=== PATIENT | female | born 1990 | race Caucasian/White ===

== ENCOUNTER 2018-06-16 17:06 | Outpatient (REF) | payer MEDICAID, SELFPAY ==
[2018-06-16 20:38] LABS: HCT 43.4 % (36.0-46.0); Mean Corp. HGB Concentration 32.3 g/dL (32.0-36.0); Mean Corpuscular Hemoglobin 31.5 pg (27.0-33.0); Mean Corpuscular Volume 97.7 fL (80-95); Mean Platelet Volume 9.5 fL (8.0-11.0); Platelet Count 316 x1000/uL (130-400); RBC 4.44 m/cumm (4.00-5.20); RBC Distribution Width 14.1 % (11.7-14.6); White Blood Cell Count 18.43 k/cumm (4.4-10.8)
[2018-06-16 20:54] LABS: TSH (W/Ref FT4) 0.57 uIU/mL (0.358-3.74)
[2018-06-16 21:04] LABS: Hemoglobin A1C 5.8 % (4.5-6.2)
== END 2018-06-16 17:26 ==
LOC: NCHCN 17:06
PROVIDERS: PCP Family Medicine; Visit Provider Family Medicine
DX: N93.9 Abnormal uterine and vaginal bleeding, unspecified (principal)
CPT/HCPCS: 85027; 83036; 84443

== ENCOUNTER 2018-06-30 08:07 | Outpatient (REF) | payer MEDICAID, SELFPAY ==
[2018-07-03 10:41] LABS: Campylobacter PCR SEE COMMENTS; Salmonella PCR SEE COMMENTS; Shiga Toxin PCR SEE COMMENTS; Shigella/Enteroinvasive Ecoli SEE COMMENTS
== END 2018-06-30 08:27 ==
LOC: NCHCN 08:07
PROVIDERS: PCP Family Medicine; Visit Provider Registered Nurse
DX: K52.9 Noninfective gastroenteritis and colitis, unspecified (principal)
CPT/HCPCS: 87505; 83630; 87324

== ENCOUNTER 2018-08-23 16:44 | Outpatient (REF) | payer MEDICAID, SELFPAY ==
--- NOTE | 2018-08-23 15:45 | PAPFT_PTH ---
PATIENT: Giulia Marinelli LOC: [facility] U#:[id number] AGE/SX: 28/F ROOM: RE08/23/[address]: Devan Pastor : 1990 BED: DIS: 08/23/2018 SPEC #: [id number] RECD: 08/24/18 12:58 STATUS: CALDERON REJuan C #: [id number] AGGIE: 08/23/18 15:[address]: Devan Pastor DEPT: [facility] Cytology RECD BY: Romy Flores ENTERED: 08/24/18 12:59 SP TYPE: PAPFT OTHR DR: Elmer Kaur Tissues: 1 - CX/ENDOCX FOR PAP SMEARS Procedures: PAP THIN PREP/UVM Screening Comments: [id number]
== END 2018-08-23 17:04 ==
LOC: NCHCN 16:44
PROVIDERS: PCP Family Medicine; Visit Provider Family Medicine
DX: Z12.4 Encounter for screening for malignant neoplasm of cervix (principal); Z00.00 Encounter for general adult medical examination without abnormal findings
CPT/HCPCS: 88142

== ENCOUNTER 2018-09-26 13:55 | Outpatient (REF) | payer MEDICAID, SELFPAY ==
[2018-09-26 21:35] LABS: ALT 24 U/L (12-78); AST 12 U/L (15-37); Albumin 3.1 g/dL (3.4-5.0); Alkaline Phosphatase 65 U/L (46-116); Anion Gap 8.2 mmol/L (3-11); BUN 20 mg/dL (7-18); Bilirubin, Total 0.2 mg/dL (0.2-1.0); CO2 27.8 mmol/L (21.0-32.0); Calcium 8.9 mg/dL (8.5-10.1); Chloride 104 mmol/L (98-107); Glucose 97 mg/dL (70-100); Potassium 4.6 mmol/L (3.5-5.1); Sodium 140 mmol/L (136-145); Total Protein 6.4 g/dL (6.4-8.2)
[2018-09-26 21:40] LABS: VALPROIC ACID 55.7 ug/mL (50-100)
[2018-09-26 22:06] LABS: HCT 40.3 % (36.0-46.0); HGB 12.8 g/dL (12.0-15.5); Mean Corp. HGB Concentration 31.8 g/dL (32.0-36.0); Mean Corpuscular Hemoglobin 30.9 pg (27.0-33.0); Mean Corpuscular Volume 97.3 fL (80-95); Mean Platelet Volume 10.2 fL (8.0-11.0); Platelet Count 331 x1000/uL (130-400); RBC 4.14 m/cumm (4.00-5.20); RBC Distribution Width 12.9 % (11.7-14.6); White Blood Cell Count 8.19 k/cumm (4.4-10.8)
[2018-09-26 22:45] LABS: Hemoglobin A1C 5.4 % (4.5-6.2)
== END 2018-09-26 14:15 ==
LOC: NCHCN 13:55
PROVIDERS: PCP Family Medicine; Visit Provider Family Medicine
DX: F31.9 Bipolar disorder, unspecified (principal); Z51.81 Encounter for therapeutic drug level monitoring; Z79.899 Other long term (current) drug therapy; R73.03 Prediabetes
CPT/HCPCS: 80053; 85027; 80164; 83036

== ENCOUNTER 2020-03-02 23:26 | Emergency (ER) | payer MEDICAID, SELFPAY ==
[2020-03-02 23:29] VITALS: BP 134/74; PULSE 98; RESP 18; TEMP 36.8; O2SAT 98
[2020-03-02] MEDS: Lidocaine/Epinephri/Tetracaine Topical Gel 3 ML (23:42)
--- NOTE | 2020-03-02 23:51 | ED.GENADUL_ITS ---
Discharge Plan Disposition Patient Disposition: HOME Condition: Good Discharge Details Clinical Impression: Laceration of upper arm without complication Primary Care Provider: Elmer Kaur ED Provider: Juan Giordano Discharge Instructions Instructions: Laceration (ED) Additional Instructions: Please leave the dressing on for 24 hours, then you may remove and begin cleaning the wound at least twice a day with soap and water. Continue to apply antibiotic ointment. Do not directly soak the area. Watch for any signs of infection and return if any increasing redness, swelling, pain, drainage. Please return in the next 7 to 10 days to have the sutures removed. If you notice any worsening of your symptoms, or any new symptoms such as vomiting, diarrhea, fever, chills, shortness of breath, chest pain, numbness, weakness, or fainting , please return immediately to the emergency department for reevaluation. Please follow up with your primary care provider as soon as possible for reassessment and reevaluation. As always, it was a pleasure part icipating in your medical care today. Referrals: Elmer Kaur [Primary Care Provider] - Medical Decision Making 29-year-old female presents today for evaluation of laceration to her left nondominant arm. Patient states that she was cleaning out a vase tonight when the glass broke and cut her arm. Aside for pain at the laceration site she denies any other complaints. She states that it was not self-inflicted. She denies any assault, and she states that she feels safe at home. Patient also states that tetanus was updated recently. She denies any new numbness tingling or weakness. No other complaints at this time. Exam demonstrates a 6 inch linear laceration to the left forearm, notably superficial and not deep. No evidence of retained foreign body or other abnormality. No indication for further imaging. The area will be sutured. Tetanus is up-to-date per patient. LAT was applied, a single simple interrupted suture was placed as well as a running interlocking suture with a 14 loops. Patient tolerated this well. Patient will be discharged home. Discussed red flags which should return the importance for suture removals. I have extensively reviewed the treatment plan and discharge instructions with the patient. I have addressed all patient concerns at this time. The patient was made aware of what symptoms to monitor for that would warrant a return to the emergency department. Discussed the plan with the patient, they demonstrate verbal understanding and agreement with our assessment and plan at this time. HPI General Date/Time Provider Initiated Documentation: 03/02/20 23:28 . HPI Narrative: 29-year-old female presents today for evaluation of laceration to her left nondominant arm. Patient states that she was cleaning out a vase tonight when the glass broke and cut her arm. Aside for pain at the laceration site she denies any other complaints. She states that it was not self-inflicted. She denies any assault, and she states that she feels safe at home. Patient also states that tetanus was updated recently. She denies any new numbness tingling or weakness. No other complaints at this time. General Stated Complaint: Laceration ROE: 4 Review of Systems All systems reviewed & are unremarkable except as noted in HPI and below [facility] Social History Smoking/Tobacco Use Status: Current every day Tobacco Type: cigarettes Smoking risk assessment performed?: Yes Alcohol Intake: never Drug use: Occasionally Substance use type: marijuana Do you feel safe at home: Yes Do you feel safe in your relationship?: Yes Exam Narrative Exam Narrative: 1.Const: Well-nourished, Well-developed, appearing stated age 2.Eyes: PERRL, no conjunctival injection, and symmetrical lids. 3.ENT: Atraumatic external nose and ears. Moist MM. Neck: Symmetric, trachea midline, No thyromegaly. 4.CVS: +S1/S2, No murmurs or gallops. Peripheral pulses 2+ and equal in all extremities. Brisk capillary refill in all extremities. 5.RESP: Unlabored respiratory effort. Clear to auscultation bilaterally. No wheezes rales or rhonchi 6.GI: Soft, Nontender/Nondistended, No hepatosplenomegaly. No guarding or rebound. 7.MSK: Normocephalic/Atraumatic, Extremities w/o deformity or ttp No cyanosis or clubbing, Normal movement of all extremities 8.Skin: Left arm demonstrates a linear 6 inch superficial laceration only for the superficial skin, and not deep into the subcutaneous tissues. There is no bleeding, oozing, or other abnormalities. There is a distal laceration that is old and well-healing with sutures in place but is otherwise clean dry and intact. No other evidence of trauma. 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 Sensation grossly intact, no focal neurologic deficits. 10.Psych: (AAO) x3. Appropriate mood and affect Course Vital Signs Vital signs: Vital Signs Temperature 36.8 C 03/02/20 23:29 Pulse 98 H 03/02/20 23:29 Respiratory Rate 18 03/02/20 23:29 Blood Pressure 134/74 03/02/20 23:29 Pulse Oximetry 98 03/02/20 23:29 Temperature 36.8 C 03/02/20 23:29 Temperature Source Oral 03/02/20 23:29 Pulse 98 H 03/02/20 23:29 Respiratory Rate 18 03/02/20 23:29 Respiratory Effort Non-Labored 03/02/20 23:33 Blood Pressure 134/74 03/02/20 23:29 Blood Pressure Position Supine 03/02/20 23:29 Pulse Oximetry 98 03/02/20 23:29 Pain Level 6 03/02/20 23:34 Procedures Laceration Laceration 1: Site: upper extremity Side (If applicable): left Size (cm): 9 Description: linear Depth: simple, single layer Local Anesthetic: other anesthetic (LET) Pre-repair: wound explored, irrigated extensively and deep structures intact Skin layer closed with: nylon Size (cm): 5-0 Number of sutures: 2 Technique: running (14 loops and a single simple interrupted suture)
== END 2020-03-03 00:31 | disposition home or self-care (01) ==
PROVIDERS: Emergency Provider Student in an Organized Health Care Education/Training Program; PCP Family Medicine
DX: S41.112A Laceration without foreign body of left upper arm, initial encounter (principal); W25.XXXA Contact with sharp glass, initial encounter

== ENCOUNTER 2021-01-06 17:30 | Outpatient (REF) | payer MEDICAID, SELFPAY ==
[2021-01-06 20:56] LABS: HCT 42.3 % (36.0-46.0); MCH 31.3 pg (27.0-33.0); MCHC 33.1 % (32.0-36.0); MCV 94.4 fL (80-95); MPV 9.6 fL (8.0-11.0); Platelet Count 382 10^3/uL (130-400); RBC 4.48 10^6/uL (3.93-5.22); RDW 12.9 % (11.7-14.6); RDW-SD 44.8 fL
[2021-01-06 21:00] LABS: ALT 32 U/L (14-59); AST 16 U/L (15-37); Alkaline Phosphatase 87 U/L (46-116); Anion Gap 7.6 mmol/L (3-11); BUN 13 mg/dL (7-18); Bilirubin, Total 0.2 mg/dL (0.2-1.0); CO2 28.4 mmol/L (21.0-32.0); CREATININE 0.8 mg/dL (0.55-1.02); Chloride 106 mmol/L (98-107); Glucose 74 mg/dL (74-106); Potassium 4.3 mmol/L (3.5-5.1); Sodium 142 mmol/L (136-145); Total Protein 6.6 g/dL (6.4-8.2)
[2021-01-06 21:21] LABS: COMMENT (LAB VIEW ONLY) 163.89 mg/dL; Microalb ug/mg Crea 126.3 ug/mg Cr
== END 2021-01-06 17:31 | disposition home or self-care (01) ==
LOC: NCHCN 17:30
PROVIDERS: PCP Family Medicine; Visit Provider Nurse Practitioner Family
DX: I10 Essential (primary) hypertension (principal)
CPT/HCPCS: 80053; 85027; 82043; 82570

== ENCOUNTER 2021-05-21 15:55 | Outpatient (REF) | payer MEDICAID, SELFPAY ==
[2021-05-21 22:41] LABS: Vitamin D 25 Total 19.8 ng/mL (30-100)
== END 2021-05-21 15:56 | disposition home or self-care (01) ==
LOC: NCHCN 15:55
PROVIDERS: PCP Family Medicine; Visit Provider Nurse Practitioner Psychiatric/Mental Health
DX: F41.9 Anxiety disorder, unspecified (principal); F31.9 Bipolar disorder, unspecified; F29 Unspecified psychosis not due to a substance or known physiological condition; F43.10 Post-traumatic stress disorder, unspecified
CPT/HCPCS: 82306

== ENCOUNTER 2021-07-23 15:31 | Outpatient (REF) | payer MEDICAID, SELFPAY ==
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
--- OUTSIDE RECORDS SUMMARY | 2021-07-23 15:44 | XMS_ITS | CCD ---
:1990 Author Care Team Providers Name Role Phone ESAU IYER Attending Physician Unavailable Vital Signs Unknown or Not Available. Allergies Allergy Code Allergy Type Reaction Status AMBIEN 789299 Drug allergy ANGER Active ZYPREXA 607702 Drug allergy WEIGHT GAIN Active LISINOPRIL {Clinical 0 Drug allergy ANGER Active monitoring unavailable} SHELLFISH 0 Food allergy Hives; Anaphylaxis Active POLLEN {Clinical 0 Allergy to Active monitoring substance unavailable} ASPIRIN 1191 Drug allergy NAUSEA; UPSET STOMACH Active Procedures Unknown or Not Available. History of Immunizations Unknown or Not Available. Problems Problem Code Start Date Resolved Date Status Syncope 379175062 Active Hypokalemia 65893263 Active Results Unknown or Not Available. Active Medications Medication Code Dose Units Frequency Route Modification Start Date/Time Potassium 6521381 1 TABLET DAILY ORAL 11/13/2019 Chloride 13:09 20MEQ Oral Tablet, Extended Release Prescription Detail TAKE 1 TABLET ORAL DAILY busPIRone 30MG 964472 30 MILLIGRAMS BEDTIME ORAL 2019 Oral Tablet 13:08 Prescription Detail TAKE 30 MILLIGRAMS ORAL BEDT GRIS Cetirizine 10MG 6262088 10 MILLIGRAMS DAILY ORAL 11/12 Oral Tablet 13:08 Prescription Detail TAKE 10 MILLIGRAMS ORAL EVANGELINA Y Desvenlafaxine 50MG 6374031 50 MILLIGRAMS DAILY ORAL 0 11/13/2019 Oral Tablet, 13:08 Extended Release Prescription Detail TAKE 50 MILLIGRAMS ORAL EVANGELINA Y Esomeprazole 325027 40 MILLIGRAMS DAILY ORAL 11/13/19 20 Magnesium 40MG 13:08 Oral Capsule, Delayed Release Prescription Detail TAKE 40 MILLIGRAMS ORAL EVANGELINA Y lamoTRIgine 384965 200 MILLIGRAMS BEDTIME ORAL 0 200MG Oral 13:08 Tablet Prescription Detail TAKE 200 MILLIGRAMS ORAL BED TIME LORazepam 0.5MG 2 TABLET BEDTIME ORAL 11/13/19 20 Oral Tablet 13:08 Prescription Detail TAKE 2 TABLET ORAL BEDTIME Montelukast 20010529 10 MILLIGRAMS DAILY ORAL 0 Sodium 10MG Oral 13:08 Tablet Prescription Detail TAKE 10 MILLIGRAMS ORAL EVANGELINA Y PROVENTIL HFA 0 2 PUFF TWICE A INHALATION 019 0.09MG/1ACTUATION INH DAY 20 :45 Prescription Detail 2 PUFF INHALATION TWICE A D AY SYMBICORT 160/4.5 0 1 PUFF TWICE A INHALATION 80MCT-4.5MCG/1 AC DAY 20:45 Prescription Detail 1 PUFF INHALATION TWICE A D AY Medications Administered During Visit Unknown or Not Available. Encounters Encounter Diagnosis Diagnosis Code Start Date Decreased movements, third trimester, not [id number] 10/26/2020 applicable or unspecified Social History Smoking Status Code Start Date End Date Current every day smoker [id number] 04/25/2003 Patient Decision Aids Unknown or Not Available. Discharge Instructions You were admitted to [facility] on 10/26/2020 14:49 with a principal diagnosis of Decreased movements, third trimester, not applicable or unspecified You were discharged from [facility] on 10/26/2020 15:40 Should you have any questions prior to d ischarge, please contact a member of your healthcare team. If you have left the spital and have any questions, please contact your primary care physician. Chief Complaint and Reason For Visit Chief Complaint Date of Onset DECREASED MOVEMENTS Function Status Unknown or Not Available. Plan of Care Unknown or Not Available. Referral/Transition of Care Unknown or Not Available.
--- OUTSIDE RECORDS SUMMARY | 2021-07-23 15:44 | XMS_ITS | CCD ---
:1990 Author Care Team Providers Name Role Phone JOE BOATENG, A Attending Physician Unavailable Vital Signs Unknown or Not Available. Allergies Allergy Code Allergy Type Reaction Status AMBIEN 397923 Drug allergy ANGER Active ZYPREXA 225198 Drug allergy WEIGHT GAIN Active LISINOPRIL {Clinical 0 Drug allergy ANGER Active monitoring unavailable} SHELLFISH 0 Food allergy Hives; Anaphylaxis Active POLLEN {Clinical 0 Allergy to Active monitoring substance unavailable} ASPIRIN 1191 Drug allergy NAUSEA; UPSET STOMACH Active Procedures Unknown or Not Available. History of Immunizations Unknown or Not Available. Problems Problem Code Start Date Resolved Date Status Syncope 735164589 Active Hypokalemia 65795485 Active Results GLUCOSE - 1 HOUR AFTER 50GM GLUCOLA - Co llect Date/Time: 10/09/2020 07:43 Test Name Code Test Result Test Units Test Ref Range GLUCOSE 1 HOUR 1504-0 137 mg/dL L=0 H= 135 HEMOGRAM & PLATELET W/O DIFF - Collect D ate/Time: 10/09/2020 07:43 Test Name Code Test Result Test Units Test Ref Range WBC 6690-2 10.92 th/cmm L=5.00 H=10.00 NRBC % 03180-4 0.0 % L=0.0 H=0. 0 NRBC abs count 49706-0 0.0 mil/cmm L=0.0 H= 0.0 RBC 789-8 4.30 mil/cmm L=3.90 H=5.40 HEMOGLOBIN 718-7 13.0 gm/dL L=12.0 H=16.0 HEMATOCRIT 4544-3 40 % L=37 H=47 MCV 787-2 94 fL L=82 H=92 MCH 785-6 30.2 pg L=27.0 H=31.0 MCHC 786-4 32.3 % L=32.0 H=36.0 RDW-SD 788-0 47.2 fL L=39.0 H=49.0 PLATELET COUNT 777-3 289 th/cmm L=150 H= 450 TYPE AND ANTIBODY SCREEN - Jaret ect Date/Time: 10/09/2020 07:43 Test Name Code Test Result Test Units Test Ref Range Blood Group 883-9 O N/A Rh (D) 84056-1 POSITIVE N/A Antibody Screen 1005-8 NEGATIVE N/A VARICELLA IGG ANTIBODY - Collect Date/Ti me: 10/09/2020 07:43 Test Name Code Test Result Test Units Test Ref Range Varicella IgG Antibody Negative N/A See N ote Active Medications Medication Code Dose Units Frequency Route Modification Start Date/Time Potassium 5144724 1 TABLET DAILY ORAL 11/13/2019 Chloride 13:09 20MEQ Oral Tablet, Extended Release Prescription Detail TAKE 1 TABLET ORAL DAILY busPIRone 30MG 050974 30 MILLIGRAMS BEDTIME ORAL 2019 Oral Tablet 13:08 Prescription Detail TAKE 30 MILLIGRAMS ORAL BEDT GRIS Cetirizine 10MG 3427814 10 MILLIGRAMS DAILY ORAL 11/12 Oral Tablet 13:08 Prescription Detail TAKE 10 MILLIGRAMS ORAL EVANGELINA Y Desvenlafaxine 50MG 0130423 50 MILLIGRAMS DAILY ORAL 0 11/13/2019 Oral Tablet, 13:08 Extended Release Prescription Detail TAKE 50 MILLIGRAMS ORAL EVANGELINA Y Esomeprazole 258156 40 MILLIGRAMS DAILY ORAL 11/13/19 20 Magnesium 40MG 13:08 Oral Capsule, Delayed Release Prescription Detail TAKE 40 MILLIGRAMS ORAL EVANGELINA Y lamoTRIgine 373992 200 MILLIGRAMS BEDTIME ORAL 0 200MG Oral 13:08 Tablet Prescription Detail TAKE 200 MILLIGRAMS ORAL BED TIME LORazepam 0.5MG 218211 2 TABLET BEDTIME ORAL 11/13/19 20 Oral Tablet 13:08 Prescription Detail TAKE 2 TABLET ORAL BEDTIME Montelukast 053390 10 MILLIGRAMS DAILY ORAL 0 Sodium 10MG [...] Encounters Encounter Diagnosis Diagnosis Code Start Date Obesity complicating , third trimester [id number] 10/09/2020 Social History Smoking Status Code Start Date End Date Current every day smoker 916153278 04/25/2003 Patient Decision Aids Unknown or Not Available. Discharge Instructions You were admitted to [facility] on 10/09/2020 07:02 with a principal diagnosis of Obesity complicating pregna ncy, third trimester You had the following tests done: GLUCOSE - 1 HOUR AFTER 50GM GLUCOLA HEMOGRAM & PLATELET W/O DIFF TYPE AND ANTIBODY SCREEN VARICELLA IGG ANTIBODY You were discharged from [facility] on 10/09/2020 07:02 Should you have any questions prior to d ischarge, please contact a member of your healthcare team. If you have left the ho spital and have any questions, please contact your primary care physician. Chief Complaint and Reason For Visit Unknown or Not Available. Function Status Unknown or Not Available. Plan of Care Unknown or Not Available. Referral/Transition of Care Unknown or Not Available.
--- OUTSIDE RECORDS SUMMARY | 2021-07-23 15:44 | XMS_ITS | CCD ---
:1990 Author Care Team Providers Name Role Phone STONE Attending Physician Unavailable Vital Signs Unknown or Not Available. Allergies Allergy Code Allergy Type Reaction Status AMBIEN 471612 Drug allergy ANGER Active ZYPREXA 810623 Drug allergy WEIGHT GAIN Active LISINOPRIL {Clinical 0 Drug allergy ANGER Active monitoring unavailable} SHELLFISH 0 Food allergy Hives; Anaphylaxis Active POLLEN {Clinical 0 Allergy to Active monitoring substance unavailable} ASPIRIN 1191 Drug allergy NAUSEA; UPSET STOMACH Active Procedures Unknown or Not Available. History of Immunizations Unknown or Not Available. Problems Problem Code Start Date Resolved Date Status Syncope 014634607 Active Hypokalemia 23029083 Active Results GLUCOSE TOLERANCE TEST THREE HOUR - Jaret ect Date/Time: 10/17/2020 07:32 Test Name Code Test Result Test Units Test Ref Range Fasting Glucose 3665-7 94 mg/dL L=80 H=116 1 hour Glucose 158 mg/dL L=80 H=200 2 hour Glucose 132 mg/dL L=80 H=150 3 hour Glucose 3665-7 61 mg/dL L=80 H=116 Active Medications Medication Code Dose Units Frequency Route Modification Start Date/Time Potassium 9210109 1 TABLET DAILY ORAL 11/13/2019 Chloride 13:09 20MEQ Oral Tablet, Extended Release Prescription Detail TAKE 1 TABLET ORAL DAILY busPIRone 30MG 138014 30 MILLIGRAMS BEDTIME ORAL 2019 Oral Tablet 13:08 Prescription Detail TAKE 30 MILLIGRAMS ORAL BEDT GRIS Cetirizine 10MG 7417774 10 MILLIGRAMS DAILY ORAL 11/12 Oral Tablet 13:08 Prescription Detail TAKE 10 MILLIGRAMS ORAL EVANGELINA Y Desvenlafaxine 50MG 1843905 50 MILLIGRAMS DAILY ORAL 0 11/13/2019 Oral Tablet, 13:08 Extended Release Prescription Detail TAKE 50 MILLIGRAMS ORAL EVANGELINA Y Esomeprazole 881459 40 MILLIGRAMS DAILY ORAL 11/13/19 20 Magnesium 40MG 13:08 Oral Capsule, Delayed Release Prescription Detail TAKE 40 MILLIGRAMS ORAL EVANGELINA Y lamoTRIgine 19830603 200 MILLIGRAMS BEDTIME ORAL 0 200MG Oral [...] Encounters Encounter Diagnosis Diagnosis Code Start Date Abnormal glucose tolerance in mother complicating 59261675 10/17/2020 , childbirth AND/OR puerperium Social History Smoking Status Code Start Date End Date Current every day smoker 383426502 04/25/2003 Patient Decision Aids Unknown or Not Available. Discharge Instructions You were admitted to [facility] on 10/17/2020 07:13 with a principal diagnosis of Abnormal glucose complicati ng You had the following tests done: GLUCOSE TOLERANCE TEST THREE HOUR You were discharged from [facility] on 10/17/2020 07:13 Should you have any questions prior to [...]
[2021-07-23 17:11] LABS: Vitamin D 25 Total 28.4 ng/mL (30-100)
== END 2021-07-23 15:32 | disposition home or self-care (01) ==
LOC: NCHCN 15:31
PROVIDERS: PCP Family Medicine; Visit Provider Nurse Practitioner Psychiatric/Mental Health
DX: F53.0 Postpartum depression (principal)
CPT/HCPCS: 82306

== ENCOUNTER 2022-01-20 11:18 | Outpatient (REF) | payer MEDICAID, SELFPAY ==
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
== END 2022-01-20 11:19 | disposition home or self-care (01) ==
LOC: NCHCN 11:18
PROVIDERS: PCP Family Medicine; Visit Provider Nurse Practitioner Psychiatric/Mental Health
DX: E55.9 Vitamin D deficiency, unspecified (principal)
CPT/HCPCS: 82306

== ENCOUNTER 2022-05-03 15:42 | Outpatient (REF) | payer MEDICAID, SELFPAY ==
[2022-05-03 21:21] LABS: Abs Immature Grans 0.02 10^3/uL (0.0-0.06); Absolute Basophil Count 0.03 10^3/uL (0.0-0.2); Absolute Eosinophil Count 0.09 10^3/uL (0.0-0.7); Absolute Lymphocyte Count 2.59 10^3/uL (1.2-3.4); Absolute Monocyte Count 0.38 10^3/uL (0.1-0.8); Absolute Neutrophil Count 6.71 10^3/uL (1.2-6.7); Basophils % 0.3; Eosinophils % 0.9; HCT 47.4 % (36.0-46.0); HGB 15.2 g/dL (11.2-15.7); Immature Grans % 0.2; Lymphocytes % 26.4; MCH 29.4 pg (27.0-33.0); MCHC 32.1 % (32.0-36.0); MCV 92 fL (80-95); Monocytes % 3.9; Neutrophils % 68.3; Platelet Count 325 10^3/uL (130-400); RBC 5.17 10^6/uL (3.93-5.22); RDW 13.1 % (11.7-14.6); RDW-SD 44.5 fL; WBC 9.82 10^3/uL (4.4-10.8)
[2022-05-03 21:40] LABS: ALT 33 U/L (14-59); AST 28 U/L (15-37); Albumin 3.6 g/dL (3.4-5.0); Alkaline Phosphatase 82 U/L (46-116); Anion Gap 7.8 mmol/L (3-11); BUN 14 mg/dL (7-18); Bilirubin, Total 0.3 mg/dL (0.2-1.0); CO2 28.2 mmol/L (21.0-32.0); CREATININE 0.9 mg/dL (0.55-1.02); Calcium 9.4 mg/dL (8.5-10.1); Calculated LDL 99 mg/dL (<100); Chloride 102 mmol/L (98-107); Cholesterol 173 mg/dL (<200); Estimated GFR 87.11 (mL/min/1.73m2); Glucose 106 mg/dL (74-106); HDL Cholesterol 54 mg/dL (40-60); Potassium 4.5 mmol/L (3.5-5.1); Sodium 138 mmol/L (136-145); TSH (W/Ref FT4) 0.83 uIU/mL (0.36-3.74); Total Protein 7.6 g/dL (6.4-8.2); Triglyceride 100 mg/dL (<150)
[2022-05-03 21:53] LABS: Vitamin D 25 Total 27.7 ng/mL (30-100)
[2022-05-03 22:02] LABS: Hemoglobin A1C 5.5 % (<5.7)
== END 2022-05-03 15:43 | disposition home or self-care (01) ==
LOC: NCHCN 15:42
PROVIDERS: PCP Family Medicine; Visit Provider Nurse Practitioner Family
DX: I10 Essential (primary) hypertension (principal); E55.9 Vitamin D deficiency, unspecified; E66.01 Morbid (severe) obesity due to excess calories; R73.03 Prediabetes; Z13.29 Encounter for screening for other suspected endocrine disorder; Z00.00 Encounter for general adult medical examination without abnormal findings
CPT/HCPCS: 80053; 80061; 82306; 83036; 84443; 85025

== ENCOUNTER 2022-10-05 21:46 | Outpatient (REF) | payer MEDICAID, SELFPAY ==
[2022-10-05 22:25] LABS: Vitamin D 25 Total 32.4 ng/mL (30-100)
== END 2022-10-05 21:47 | disposition home or self-care (01) ==
LOC: NCHCN 21:46
PROVIDERS: PCP Family Medicine; Visit Provider Family Medicine
DX: E55.9 Vitamin D deficiency, unspecified (principal)
CPT/HCPCS: 82306

== ENCOUNTER 2022-12-10 10:54 | Outpatient (REF) | payer MEDICAID, SELFPAY | END 2022-12-10 10:55 | disposition home or self-care (01) | LOC: NCHCN 10:54 | PROVIDERS: PCP Family Medicine; Visit Provider Internal Medicine | DX: R39.89 Other symptoms and signs involving the genitourinary system (principal); R82.998 Other abnormal findings in urine | CPT/HCPCS: 87086 ==

== ENCOUNTER 2023-01-03 13:47 | Outpatient (REF) | payer MEDICAID, SELFPAY ==
[2023-01-03 14:41] LABS: Abs Immature Grans 0.02 10^3/uL (0.0-0.06); Absolute Basophil Count 0.03 10^3/uL (0.0-0.2); Absolute Eosinophil Count 0.23 10^3/uL (0.0-0.7); Absolute Lymphocyte Count 2.25 10^3/uL (1.2-3.4); Absolute Monocyte Count 0.45 10^3/uL (0.1-0.8); Absolute Neutrophil Count 5.99 10^3/uL (1.2-6.7); Basophils % 0.3; Eosinophils % 2.6; HCT 43.4 % (36.0-46.0); HGB 14.1 g/dL (11.2-15.7); Immature Grans % 0.2; Lymphocytes % 25.1; MCHC 32.5 % (32.0-36.0); MCV 92 fL (80-95); MPV 9.6 fL (8.0-11.0); Neutrophils % 66.8; Platelet Count 283 10^3/uL (130-400); RDW 14.2 % (11.7-14.6); RDW-SD 48.4 fL; WBC 8.97 10^3/uL (4.4-10.8)
[2023-01-03 14:58] LABS: ALT 26 U/L (14-59); AST 16 U/L (15-37); Albumin 3.3 g/dL (3.4-5.0); Alkaline Phosphatase 67 U/L (46-116); Anion Gap 5.8 mmol/L (3-11); BUN 18 mg/dL (7-18); Bilirubin, Total 0.3 mg/dL (0.2-1.0); CO2 28.2 mmol/L (21.0-32.0); CREATININE 0.9 mg/dL (0.55-1.02); Calcium 9.1 mg/dL (8.5-10.1); Chloride 103 mmol/L (98-107); Estimated GFR 87.11 (mL/min/1.73m2); Glucose 101 mg/dL (74-106); Lipase 29 U/L (16-77); Potassium 4.4 mmol/L (3.5-5.1); Sodium 137 mmol/L (136-145); Total Protein 7.3 g/dL (6.4-8.2)
== END 2023-01-03 13:48 | disposition home or self-care (01) ==
LOC: NCHCN 13:47
PROVIDERS: PCP Family Medicine; Visit Provider Registered Nurse
DX: R10.11 Right upper quadrant pain (principal)
CPT/HCPCS: 80053; 83690; 85025

== ENCOUNTER 2023-02-02 17:52 | Outpatient (REF) | payer MEDICAID, SELFPAY | END 2023-02-02 17:53 | disposition home or self-care (01) | LOC: NCHCN 17:52 | PROVIDERS: PCP Family Medicine; Visit Provider Family Medicine | DX: J02.9 Acute pharyngitis, unspecified (principal) | CPT/HCPCS: 87070 ==

== ENCOUNTER 2023-08-03 14:38 | Outpatient (REF) | payer MEDICAID, SELFPAY ==
[2023-08-03 16:26] LABS: Hemoglobin A1C 5.8 % (<5.7)
[2023-08-03 16:40] LABS: ALT 39 U/L (14-59); AST 23 U/L (15-37); Albumin 3.8 g/dL (3.4-5.0); Alkaline Phosphatase 79 U/L (46-116); Anion Gap 9.6 mmol/L (3-11); BUN 14 mg/dL (7-18); Bilirubin, Total 0.3 mg/dL (0.2-1.0); CO2 27.4 mmol/L (21.0-32.0); CREATININE 0.8 mg/dL (0.55-1.02); Calcium 9.7 mg/dL (8.5-10.1); Calculated LDL 111 mg/dL (<100); Chloride 103 mmol/L (98-107); Cholesterol 198 mg/dL (<200); Estimated GFR 99.71 (mL/min/1.73m2); Glucose 92 mg/dL (74-106); HDL Cholesterol 57 mg/dL (40-60); Potassium 4.5 mmol/L (3.5-5.1); Sodium 140 mmol/L (136-145); TSH 0.87 uIU/Ml (0.36-3.74); Total Protein 7.8 g/dL (6.4-8.2); Triglyceride 150 mg/dL (<150)
[2023-08-03 17:07] LABS: FREE T4 0.87 ng/dL (0.76-1.46)
== END 2023-08-03 14:39 | disposition home or self-care (01) ==
LOC: NCHCN 14:38
PROVIDERS: PCP Family Medicine; Visit Provider Family Medicine
DX: E66.01 Morbid (severe) obesity due to excess calories (principal)
CPT/HCPCS: 80053; 80061; 83036; 84439; 84443

== ENCOUNTER 2024-04-05 11:48 | Outpatient (REF) | payer MEDICAID, SELFPAY ==
[2024-04-05 14:35] LABS: HCT 46.3 % (36.0-46.0); HGB 14.7 g/dL (11.2-15.7); MCH 30.2 pg (27.0-33.0); MCHC 31.7 % (32.0-36.0); MCV 95 fL (80-95); MPV 9.4 fL (8.0-11.0); Platelet Count 305 10^3/uL (130-400); RBC 4.87 10^6/uL (3.93-5.22); RDW 13.1 % (11.7-14.6); RDW-SD 45.7 fL; WBC 7.62 10^3/uL (4.4-10.8)
[2024-04-05 15:18] LABS: TSH (W/Ref FT4) 1.07 uIU/mL (0.36-3.74); Vitamin D 25 Total 25.2 ng/mL (30-100)
== END 2024-04-05 11:49 | disposition home or self-care (01) ==
LOC: NCHCN 11:48
PROVIDERS: PCP Family Medicine; Visit Provider Family Medicine
DX: R53.83 Other fatigue (principal)
CPT/HCPCS: 82306; 85027; 84443